=== PATIENT | male | born 1975 | race Caucasian/White ===

== ENCOUNTER 2020-12-01 14:30 | Inpatient (IN) | payer SELFPAY ==
[~2020-12-01] VITALS: Ht 149.9 cm; Wt 52.6 kg
[2020-12-01] MEDS ORDERED: SODIUM CHLORIDE 0.9% 1,000 ML IV ONE (16:30)
[2020-12-01 17:02] LABS: BASOPHILS % 2.4 % (0.0-2.0); EOSINOPHILS % 12.9 % (0.0-5.0); LYMPHOCYTES % 39.5 % (20.0-50.0); MEAN CORPUSCULAR HEMOGLOBIN 16.9 pg (28.0-32.0); MEAN CORPUSCULAR VOLUME 59.5 fL (80.0-94.0); MEAN PLATELET VOLUME 8.2 fl (7.4-10.4); MONOCYTES % 5.9 % (2.0-8.0); NEUTROPHILS % 39.3 % (40.0-76.0); PLATELET 284 x1000/uL (130-400); RED BLOOD CELL COUNT 3.69 mill/uL (4.7-6.1)
[2020-12-01 17:09] LABS: HEMOGLOBIN. 6.2 g/dL (14.0-18.0)
[2020-12-01 17:10] LABS: CHLORIDE 108 mEq/L (98-107)
[2020-12-01 17:23] LABS: PLATELET ESTIMATE NORMAL
[2020-12-01 17:25] LABS: ETHANOL BLOOD 459 mg/dL
[2020-12-01] MEDS ORDERED: MAGNESIUM 2 G PREMIX 50 ML IV ONE (18:15)
[2020-12-01] MEDS ORDERED: POTASSIUM CHLORIDE INJ 30 MEQ in DEXT 5%/0.9% NACL 1,000 ML IV ONE (18:15)
[2020-12-01 19:57] LABS: CLARITY URINE CLEAR (CLEAR); COLOR URINE YELLOW (YELLOW); KETONES URINE NEGATIVE (NEGATIVE); LEUKOCYTE ESTERASE URINE NEGATIVE (NEGATIVE); NITRITE URINE NEGATIVE (NEGATIVE); OCCULT BLOOD URINE NEGATIVE (NEGATIVE); PH URINE 6.5 (4.5-8.0); PROTEIN URINE NEGATIVE (NEGATIVE); SPECIFIC GRAVITY URINE 1.004 (1.005-1.030); UROBILINOGEN URINE 0.2 E.U./dL (0.2-1.0)
[2020-12-01] MEDS ORDERED: ONDANSETRON HCL 4MG/2ML INJ IV PRN (20:45)
[2020-12-01] MEDS ORDERED: ACETAMINOPHEN 325MG TABLET PO PRN (20:45)
[2020-12-01] MEDS ORDERED: HYDROCODONE/ACETAMINOPHEN 5/325MG TABLET PO PRN (20:45)
[2020-12-01] MEDS ORDERED: DOCUSATE SODIUM 100MG CAPSULE PO PRN (20:45)
[2020-12-01] MEDS ORDERED: LORAZEPAM 2MG/ML CPJ IV PRN (20:45)
[2020-12-01] MEDS ORDERED: PANTOPRAZOLE SODIUM 40 MG/VIAL IV SCH (20:45)
[2020-12-01] MEDS ORDERED: MAGNESIUM/ALUMINUM HYDROXIDE/SIMETHICONE 30ML UDC PO PRN (20:45)
[2020-12-01] MEDS ORDERED: CLONIDINE 0.1MG TABLET PO PRN (20:45)
[2020-12-01] MEDS ORDERED: SODIUM CHLORIDE 0.45% 1,000 ML IV SCH (20:45)
[2020-12-02] VITALS (12 sets, daily range): BP systolic 103–124; BP diastolic 68–88
[2020-12-02 09:40] LABS: HEMATOCRIT. 27.1 % (42.0-52.0); HEMOGLOBIN. 7.9 g/dL (14.0-18.0); MEAN CORPUSCULAR HEMOGLOBIN 18.3 pg (28.0-32.0); MEAN CORPUSCULAR VOLUME 62.8 fL (80.0-94.0); MEAN PLATELET VOLUME 8.3 fl (7.4-10.4); PLATELET 320 x1000/uL (130-400); RED BLOOD CELL COUNT 4.32 mill/uL (4.7-6.1); RED CELL DISTRIBUTION WIDTH 27.8 % (11.6-14.6)
[2020-12-02 09:42] LABS: CHLORIDE 103 mEq/L (98-107)
[2020-12-02] MEDS ORDERED: PNEUMOCOCCAL 23-VAL P-SAC VAC 0.5 ML IM ONE (10:00)
[2020-12-02] MEDS ORDERED: INFLUENZA VACCINE 05/PF 0.5 ML VIAL IM ONE (10:00)
[2020-12-02] MEDS: SODIUM CHLORIDE 0.45% 1,000 ML IV SCH (11:44)
[2020-12-02] MEDS: FOLIC ACID/VITAMIN B COMP W-C TABLET PO SCH (12:33)
[2020-12-02 14:25] LABS: NUCLEATED RED BLOOD CELLS 1 /100 WBC
[2020-12-02 14:29] LABS: PLATELET ESTIMATE NORMAL
[2020-12-02] MEDS: FAMOTIDINE 20MG/2ML VIAL IV SCH (20:35)
[2020-12-03] VITALS: BP 115/78
[2020-12-03] MEDS: SODIUM CHLORIDE 0.45% 1,000 ML IV SCH ×2 (00:11→12:45)
[2020-12-03 04:00] VITALS: BP 113/86
[2020-12-03 08:00] VITALS: BP 110/73
[2020-12-03] MEDS: FAMOTIDINE 20MG/2ML VIAL IV SCH (09:14)
[2020-12-03] MEDS: FOLIC ACID/VITAMIN B COMP W-C TABLET PO SCH (09:14)
[2020-12-03 12:00] VITALS: BP 113/83
[2020-12-03 14:43] VITALS: BP 113/83
== END 2020-12-03 15:55 | disposition home or self-care (01) | DRG 775 ==
LOC: ER 14:30 → 5WST 20:13 → ENRESERV 21:50
PROVIDERS: ADMIT Hospitalist; ATTEND Hospitalist
PROC: 30233N1 Transfusion of Nonautologous Red Blood Cells into Peripheral Vein, Percutaneous Approach (ICD-10-PCS; principal; 2020-12-02)
DX: F10.129 Alcohol abuse with intoxication, unspecified (principal); E87.5 Hyperkalemia; D64.9 Anemia, unspecified; F17.200 Nicotine dependence, unspecified, uncomplicated; Z59.0 Homelessness; Z20.822 Contact with and (suspected) exposure to COVID-19
CPT/HCPCS: 36415; 80048; 80053; 80320; 81003; 85025; 86850; 86900; 86920; 87426; 90686; 90732; 99291; J2060; J2405; J3475; J3480; J3490; J7030; J7042; P9016; G0480